=== PATIENT | female | born 2005 | race African-American/Black ===

== ENCOUNTER 2024-10-09 | Emergency (ER) | payer MEDICAID ==
[~2024-10-09] VITALS: Ht 162.6 cm; Wt 64.0 kg
[2024-10-09 00:10] VITALS: O2SAT 100
[2024-10-09 01:01] VITALS: TEMP 36.9; O2SAT 100
[2024-10-09] MEDS: LIDOCAINE 5% PATCH TOP SCH (04:28)
[2024-10-09 04:30] VITALS: BP 116/62; PULSE 90; RESP 18
[2024-10-09] MEDS: KETOROLAC 15MG/ML VIAL IM ONE (04:30)
[2024-10-09] MEDS ORDERED: TOPUD PO (05:51)
[2024-10-09] MEDS: ACETAMINOPHEN 325MG TABLET PO ONE (06:10)
== END 2024-10-09 06:12 | disposition home or self-care (01) ==
LOC: ER
DX: S50.02XA Contusion of left elbow, initial encounter (principal); V98.8XXA Other specified transport accidents, initial encounter; Y93.89 Activity, other specified; Y92.89 Other specified places as the place of occurrence of the external cause; Y99.8 Other external cause status
CPT/HCPCS: 99283; 81025; 73080; 96372; J1885